=== PATIENT | female | born 1970 | race Two or more races ===

== ENCOUNTER 2024-06-01 08:29 | Inpatient (IN) | payer MEDICAID ==
[~2024-06-01] VITALS: Ht 167.6 cm; Wt 78.7 kg
[~2024-06-01 08:29] MED LIST: LISI20TA56 PO; OXYC325T14 PO
[2024-06-01] MEDS: ceFAZolin 2 GM/D5W50ml 50 ML IV ONE (09:13)
[2024-06-01] MEDS: BUPIVACAINE HCL 0.25% P/F 10 ML VIAL ONE (09:22)
[2024-06-01] MEDS: LIDOCAINE 1% HCL (LOCAL ANESTH.) INJ 20ML MDV ONE (09:22)
[2024-06-01] MEDS: ceFAZolin 1GM VL ONE (09:23)
[2024-06-01] MEDS: CONJ ESTROGENS 0.625MG/GM VAG CRM 30GM PV ONE (09:23)
[2024-06-01] MEDS ORDERED: LIDOCAINE W/ EPINEPHRINE 1% 20ML VIAL ONE (09:28)
[2024-06-01] MEDS ORDERED: MEPERIDINE HCL (50 MG/ML) 1 ML VIAL ONE (09:42)
[2024-06-01] MEDS ORDERED: fentaNYL CITRATE 100 MCG/2 ML VL ONE (09:42)
[2024-06-01] MEDS ORDERED: MIDAZOLAM HCL 2MG/2ML 2ml VIAL (1mg/ml) ONE (09:42)
[2024-06-01] MEDS ORDERED: DexAMETHasone SOD PHOS 10MG/1ML VIAL INJ ONE (09:44)
[2024-06-01] MEDS ORDERED: PROPOFOL 10 MG/ML 20 ML IV ONE (09:44)
[2024-06-01] MEDS: VASOPRESSIN 20 UNIT/ML ONE (09:51)
[2024-06-01] MEDS: LIDOCAINE 2% JELLY 11ml (GLYDO) ONE (10:03)
[2024-06-01] MEDS: KETOROLAC TROMETH 30 MG/ML 1ML VIAL IV ONE (10:15)
[2024-06-01] MEDS ORDERED: hydrALAZINE HCL 20 MG/ML VL IV PRN (10:15)
[2024-06-01] MEDS ORDERED: HYDROmorphone HCL 2 MG/ML VL/or syr IV PRN (10:15)
[2024-06-01] MEDS: ONDANSETRON HCL 4 MG/2 ML VIAL IV ONE (10:15)
[2024-06-01] MEDS ORDERED: MORPHINE SULFATE 4 MG/ML SYR/VIAL IV PRN (10:15)
[2024-06-01] MEDS ORDERED: MIDAZOLAM HCL 2MG/2ML 2ml VIAL (1mg/ml) IV PRN (10:15)
[2024-06-01] MEDS ORDERED: ePHEDrine SULFATE 50 MG/ML AMP IV PRN (10:15)
[2024-06-01] MEDS: LIDOCAINE 1%-Mpf/Epinephrine 1:200,000 30ml VIAL IJ ONE (11:00)
[2024-06-01 11:10] VITALS: RESP 23; O2SAT 98
[2024-06-01] MEDS ORDERED: NITROGLYCERIN 0.4 MG SL TAB SL PRN (12:00)
[2024-06-01] MEDS ORDERED: MORPHINE SULFATE INJ 2 MG/ml SYRG IV PRN (12:00)
[2024-06-01] MEDS: SODIUM CHLORIDE 0.9% 1,000 ML IV SCH (12:00)
[2024-06-01] MEDS ORDERED: ACETAMINOPHEN 500 MG TAB PO PRN (12:00)
[2024-06-01] MEDS: ceFAZolin 1GM/50ML 50 ML IV ONE (12:00)
[2024-06-01 14:20] VITALS: BP 134/77; PULSE 57; RESP 18; TEMP 97.7; O2SAT 97
[2024-06-01 14:34] VITALS: BP 134/77; PULSE 61; RESP 18; TEMP 97.7; O2SAT 97
[2024-06-01] MEDS ORDERED: HYDR25TA4 PO (15:20)
[2024-06-01 17:00] VITALS: BP 116/69; PULSE 63; RESP 18; TEMP 97.7; O2SAT 97
[2024-06-01] MEDS: HYDROcodone-ACET 5/325MG TAB PO PRN (18:10)
[2024-06-01 20:00] VITALS: PULSE 76
[2024-06-01 21:00] VITALS: BP 107/66; PULSE 72; RESP 20; TEMP 97.8; O2SAT 95
[2024-06-02 01:00] VITALS: BP 93/56; PULSE 60; RESP 20; TEMP 97.9; O2SAT 96
[2024-06-02 05:00] VITALS: BP 91/54; PULSE 55; RESP 18; TEMP 98.3; O2SAT 98
[2024-06-02 08:00] VITALS: PULSE 70; RESP 18; O2SAT 96
[2024-06-02 09:00] VITALS: BP 103/60; PULSE 70; RESP 20; TEMP 97.5; O2SAT 96
[2024-06-02 12:30] VITALS: BP 103/71; PULSE 55; RESP 19; TEMP 98.1; O2SAT 99
[2024-06-02] MEDS: ONDANSETRON HCL 4 MG/2 ML VIAL IV PRN (12:50)
[2024-06-02] MEDS: MORPHINE SULFATE 4 MG/ML SYR/VIAL IV PRN (12:51)
[2024-06-02 14:03] VITALS: BP 105/62; PULSE 69; RESP 15; TEMP 97.9; O2SAT 95
== END 2024-06-02 16:20 | disposition home or self-care (01) | DRG 445 ==
LOC: SUR 08:29 → OVERFLOW 11:58 → WEST WING 14:34
PROVIDERS: ADMIT Obstetrics & Gynecology; ATTEND Obstetrics & Gynecology
PROC: 0UBG0ZZ Excision of Vagina, Open Approach (ICD-10-PCS; 2024-06-01)
PROC: 0JUC0JZ Supplement of Pelvic Region Subcutaneous Tissue and Fascia with Synthetic Substitute, Open Approach (ICD-10-PCS; principal; 2024-06-01 09:54)
DX: N39.3 Stress incontinence (female) (male) (principal); E11.8 Type 2 diabetes mellitus with unspecified complications; I10 Essential (primary) hypertension; N81.10 Cystocele, unspecified; N89.8 Other specified noninflammatory disorders of vagina; R35.0 Frequency of micturition
CPT/HCPCS: 86850; 86900; 86901; G0378; J0690; J1100; J2001; J2250; J2405; J2704; J3490